=== PATIENT | female | born 1940 | race Caucasian/White ===

== ENCOUNTER 2017-07-30 22:49 | Emergency (ER) | payer MEDICARE ==
--- NOTE | 2017-07-30 23:49 | ED ---
Fall HPI - General Chief Complaint: Fall Stated Complaint: Fall-head injury Time Seen by Provider: 07/30/17 23:00 Source: patient, family Mode of arrival: wheelchair - History of Present Illness Initial Comments: This is a 76-year-old female who states she missed a curb while walking out into the local parking lot. She fell she complains of pain to the left side of her forehead as well as her left wrist area. She denies any other injury she had no loss consciousness no nausea vomiting. After arrival back in emergency department she also complains some left hip pain. MD Complaint: fall - Related Data Home Medications Medication Instructions Recorded Confirmed Atorvastatin [Lipitor] 20 mg PO HS 02/28/16 07/30/17 Hydroxyurea [Hydrea] 1,000 mg PO SUSA 02/28/16 07/30/17 Hydroxyurea [Hydrea] 500 mg PO [id number] 02/28/16 07/30/17 Levothyroxine Sodium [Synthroid] 50 mcg PO DAILY 02/28/16 07/30/17 Aspirin [Adult Low Dose Aspirin EC] 81 mg PO DAILY 03/02/16 07/30/17 Losartan Potassium [Cozaar] 25 mg PO DAILY 07/30/17 07/30/17 Metoprolol Succinate [Toprol XL] 50 mg PO BID 07/30/17 07/30/17 Allergies Allergy/AdvReac Type Severity Reaction Status Date / Time No Known Allergies Allergy Verified 07/30/17 22:55 Review of Systems ROS Statement: Those systems with pertinent positive or pertinent negative responses have been documented in the HPI. ROS Other: All systems not noted in ROS Statement are negative. 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 History of Any Multi-Drug Resistant Organisms: None Reported Past Surgical History: Breast Surgery, Pacemaker, Tonsillectomy Additional Past Surgical History / Comment(s): left breast mastecomy, pacemaker insertio and a chest tube insertion. Past Anesthesia/Blood Transfusion Reactions: No Reported Reaction Type of Cardiac Device: Permanent Pacemaker Device Placement Date:: 08/2013 Past Psychological History: Anxiety Smoking Status: Never smoker - Past Family History Mother Family Medical History: Diabetes Mellitus, GI Bleed, Thyroid Disorder General Exam - General Exam Comments Initial Comments: This is a well-developed well-nourished awake alert oriented 3 female she does demonstrate a Issac Coma Scale of 15 Limitations: physical limitation General appearance: alert, anxious Head exam: Present: normocephalic, other (The hematoma with abrasion over the left upper forehead no step-off or crepitation. ) Eye exam: Present: normal appearance, PERRL, EOMI. Absent: scleral icterus, conjunctival injection, periorbital swelling ENT exam: Present: normal exam, mucous membranes moist Neck exam: Present: normal inspection, full ROM. Absent: tenderness, meningismus, lymphadenopathy Respiratory exam: Present: normal lung sounds bilaterally. Absent: respiratory distress, wheezes, rales, rhonchi, stridor Cardiovascular Exam: Present: regular rate, normal rhythm, normal heart sounds. Absent: systolic murmur, diastolic murmur, rubs, gallop, clicks GI/Abdominal exam: Present: soft. Absent: tenderness Extremities exam: Present: full ROM, tenderness, normal capillary refill, other (Tenderness palpation without ecchymosis and hematoma noted over left lateral hip no definite step-off or crepitation.) Back exam: Present: normal inspection Neurological exam: Present: alert, oriented X3, CN II-XII intact Psychiatric exam: Present: normal affect, normal mood Skin exam: Present: warm, dry. Absent: intact Course Vital Signs 07/30/17 07/31/17 22:50 00:13 Temperature 97.9 F Pulse Rate 80 78 Respiratory 20 18 Rate Blood Pressure 166/80 178/80 O2 Sat by Pulse 100 100 Oximetry - Reevaluation(s) Reevaluation #1: 07/31/17 00:32 I did discuss the case with the emergency department staff at [facility] they will consult or trauma surgeons and call his back with consent for transfer. Procedures - Procedures Initial comment: Patient did have a left distal radius fracture did place a 2 x 10 short arm left thumb spica OCL on the patient. There was good neurovascular exam afterwards. Patient did tolerate this well. Medical Decision Making - Medical Decision Making I did discuss case with Dr. Thorpe at [facility]. The trauma service has agreed to set the patient transfer the patient be transferred. She remains awake alert oriented 3 Cochrane Coma Scale currently still of 15. - EKG Data -: EKG Interpreted by Me EKG shows normal: sinus rhythm (Approximate 70 bpm. The MD interval QRS duration QT QTc were not measured.) - Radiology Data Radiology results: report reviewed (I did review the imaging and reports and did discuss the CAT scan of the radiologist. Patient does demonstrate a distal left radius fracture but did say she demonstrates a left sided subdural hematoma approximately 8 mm with minimal evidence of shift at this time. It appears be acute left frontal/temporal cerebral convexity subdural hematoma this was read with an discussed with Dr. Maradiaga), image reviewed Critical Care Time Critical Care Time: Yes Critical Care Time: 31 minutes of critical care time which includes initial presentation with history physical x-rays labs discussion with the radiologist discussion with the receiving facility documentation the above. Also transfer forms. Disposition Clinical Impression: Subdural hematoma, acute, Scalp hematoma, Distal radius fracture, left, Fall Disposition: OTHER INSTITUTION NOT DEFINED Condition: Serious Referrals: Ayo Gandara MD [Primary Care Provider] - 1-2 days - Out of Hospital Transfer - Req. Specs Out of Hospital Transfer - Requested Specifics: Other Emergency Center
--- NOTE | 2017-07-31 00:10 | CT ---
EXAM: CT Head Without Intravenous Contrast CLINICAL HISTORY: Reason: Pain TECHNIQUE: Axial computed tomography images of the head/brain without intravenous contrast. CTDI is 60.3 mGy and DLP is 1180.9 mGy-cm. This CT exam was performed using one or more of the following dose reduction techniques: automated exposure control, adjustment of the mA and/or kV according to patient size, and/or use of iterative reconstruction technique. COMPARISON: No relevant prior studies available. FINDINGS: Brain: Small acute left frontal/temporal cerebral convexity subdural hematoma measuring up to 8 mm (3-34). This demonstrates minimal mass effect on the overlying parenchyma. No significant midline shift. Chronic small vessel ischemic disease and senescent changes. Ventricles: Unremarkable. No ventriculomegaly. Bones/joints: Unremarkable. No acute fracture. Soft tissues: Moderate sized left frontal scalp soft tissue hematoma. Sinuses: Minimal mucosal thickening of the paranasal sinuses. Mastoid air cells: Unremarkable as visualized. No mastoid effusion. IMPRESSION: Small acute left frontal/temporal cerebral convexity subdural hematoma measuring up to 8 mm (3-34). This demonstrates minimal mass effect on the overlying parenchyma. No significant midline shift. EXAM: CT Cervical Spine Without Intravenous Contrast CLINICAL HISTORY: Reason: Pain TECHNIQUE: Axial computed tomography images of the cervical spine without intravenous contrast. CTDI is 14.5 mGy and DLP is 346.6 mGy-cm. This CT exam was performed using one or more of the following dose reduction techniques: automated exposure control, adjustment of the mA and/or kV according to patient size, and/or use of iterative reconstruction technique. COMPARISON: No relevant prior studies available. FINDINGS: Vertebrae: No definite evidence of acute fracture or traumatic alignment. Discs/spinal canal/neural foramina: Multilevel degenerative changes. No spinal canal stenosis. Soft tissues: Unremarkable. Esophagus: Patulous esophagus versus gastric pull-up. Correlate with surgical history. Lung apices: Visualized upper abdomen demonstrates biapical pleural parenchymal scarring. IMPRESSION: No acute findings. Critical Value Communications 07/31/17 00:12 Call Doctor Regarding Above results, called Dr. Lee on 07/31 00:11 (-04:00)
--- NOTE | 2017-07-31 00:23 | XR ---
EXAM: XR Left Hip With Pelvis When Performed, 2 or 3 Views CLINICAL HISTORY: Pain TECHNIQUE: Two or three views of the left hip, with pelvis when performed. COMPARISON: No relevant prior studies available. FINDINGS: Bones/joints: No acute fracture or malalignment. Degenerative changes of the osseous structures. Soft tissues: Unremarkable. IMPRESSION: No acute fracture or malalignment.
[2017-07-31 00:24] VITALS: RESP 18
--- NOTE | 2017-07-31 00:27 | XR ---
EXAM: XR Left Wrist Complete, 3 or More Views CLINICAL HISTORY: Pain TECHNIQUE: Frontal, lateral and oblique views of the left wrist. COMPARISON: No relevant prior studies available. FINDINGS: Bones/joints: Cortical irregularity noted about the radial styloid which may represent a non-displaced fracture. Degenerative changes of the carpal bones. No dislocation. Soft tissues: Unremarkable. No radiopaque foreign body. Other findings: No malalignment. IMPRESSION: Cortical irregularity noted about the radial styloid which may represent a non-displaced fracture.
[2017-07-31 01:09] VITALS: BP 162/78; PULSE 82; TEMP 97.2
[2017-07-31 01:10] LABS: Basophils % (A) 0 %; CH 34.6; Eosinophils # (A) 0.1 k/uL (0-0.7); Eosinophils % (A) 3 %; HCT 40.7 % (34.0-46.0); HDW 2.58; HGB 13.7 gm/dL (11.4-16.0); Luc # (Auto) 0.05; Luc % (Auto) 1; Lymphocytes # (A) 0.3 k/uL (1.0-4.8); Lymphocytes % (A) 8 %; MCH 34.6 pg (25.0-35.0); MCHC 33.8 g/dL (31.0-37.0); MCV 102.3 fL (80.0-100.0); Macrocytosis Slight; Mean Platelet Volume 7.8; Monocytes # (A) 0.2 k/uL (0-1.0); Monocytes % (A) 5 %; Neutrophils # (A) 3.3 k/uL (1.3-7.7); Neutrophils % (A) 82 %; RBC 3.98 m/uL (3.80-5.40); RDW 15.8 % (11.5-15.5); WBC 4.1 k/uL (3.8-10.6); WBC (Perox) 4.06
[2017-07-31 01:18] LABS: ALT 47 U/L (9-52); AST 78 U/L (14-36); Alcohol <10 mg/dL; Alkaline Phosphatase 89 U/L (38-126); Anion Gap 8 mmol/L; Blood Urea Nitrogen 15 mg/dL (7-17); Calcium 9.9 mg/dL (8.4-10.2); Carbon Dioxide 28 mmol/L (22-30); Chloride 98 mmol/L (98-107); Glucose 115 mg/dL (74-99); Non-African American GFR(MDRD) >60 (>60 ml/min/1.73 sqM); Potassium 4.3 mmol/L (3.5-5.1); Sodium 134 mmol/L (137-145); Total Bilirubin 0.8 mg/dL (0.2-1.3)
[2017-07-31 01:30] LABS: Partial Thromboplastin Time 22.1 sec (22.0-30.0); Prothrombin Time 10.3 sec (9.0-12.0)
[2017-07-31 01:36] LABS: Creatine Kinase MB 1.6 ng/mL (0.0-2.4); Troponin I 0.019 ng/mL (0.000-0.034)
[2017-07-31] MEDS ORDERED: ONDANSETRON 4 MG/2 ML VIAL IVP STA (01:54)
== END 2017-07-31 01:47 | disposition short-term general hospital (02) ==
LOC: EC 22:49
DX: S52.502A Unspecified fracture of the lower end of left radius, initial encounter for closed fracture (principal); S06.5X0A Traumatic subdural hemorrhage without loss of consciousness, initial encounter; S00.03XA Contusion of scalp, initial encounter; R40.2412 Glasgow coma scale score 13-15, at arrival to emergency department; I10 Essential (primary) hypertension; M19.90 Unspecified osteoarthritis, unspecified site; E07.9 Disorder of thyroid, unspecified; I49.5 Sick sinus syndrome; Z85.3 Personal history of malignant neoplasm of breast; Z79.82 Long term (current) use of aspirin; Z79.899 Other long term (current) drug therapy; W10.1XXA Fall (on)(from) sidewalk curb, initial encounter; Y93.01 Activity, walking, marching and hiking; Y92.481 Parking lot as the place of occurrence of the external cause
CPT/HCPCS: 99285; 29125; 96374; 36415; 93005; 86900; 86901; 80053; 82550; 82553; 84484; 85025; 85610; 85730; 86850; 80320; 73502; 73110; 72125; 70450; J2405